=== PATIENT | female | born 1945 | race Caucasian/White ===

== ENCOUNTER 2023-11-10 18:16 | Emergency (ER) | payer MEDICARE ==
[~2023-11-10] VITALS: Ht 160 cm; Wt 60.2 kg
--- NOTE | ~2023-11-10 | EKG ---
[facility] [address] [place], [place] [address] Draft EK completed, results pending confirmation PATIENT NAME: DEB RAINEY Electrocardiogram DATE OF : 41 PHYSICIAN: PRELIMINARY REPORT #: [id number] REPORT IS CONFIDENTIAL AND NOT TO BE RELEASED WITHOUT AUTHORIZATION
[~2023-11-10 18:16] MED LIST: ALPHAGAN P5 M1 OS; ASPIRIN EC325 MG PO; CARDURA1 MG PO; CARDURA2 MG PO; CEPHALEXIN500 MG PO; CIPROFLOXACIN500 MG PO; DILAUDID4 MG PO; DILTIAZEM ER180 MG PO; ECOTRIN81 MG PO; FLAGYL500 MG PO; FLUOXETINE HCL20 MG PO; FORTAMET500 MG PO; LISINOPRIL10 MG PO; LISINOPRIL2.5 MG PO; LISINOPRIL5 MG PO; LUMIGAN2.5 M1 OS; METFORMIN HCL500 MG PO; METHOCARBAMOL500 MG PO; MOBIC15 MG PO; MOTRIN IB200 MG PO; OXYCODONE HCL5 MG PO; OXYCODONE-ACET1 EAC1 PO; PRILOSEC20 MG PO; PROVENTIL HFA6.7 GM INH; PYRIDIUM100 MG PO; SIMVASTATIN20 MG PO; SYMBICORT 80-10.2 GM IH; SYMBICORT 80-10.2 GM INH; TRAMADOL HCL50 MG PO; TRAZODONE HCL100 MG PO; TRAZODONE HCL50 MG PO; ULTRAM50 MG PO; WELLBUTRIN SR100 MG PO; XARELTO10 MG PO; ZOCOR40 MG PO
--- OUTSIDE RECORDS SUMMARY | 2023-11-10 18:22 | XMS ---
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 - 2 Visits in 30 Days CARE PROVIDERS There are no care providers on record at this time. Antoni has no Care Guidelines for this patient. [facility] (12 MO.) [facility] NOTE: Visits indicate total known visits. ED/C VISIT TRACKING (12 MO.) [facility]10[facility]2023 18[facility]17 [facility] [place] [facility]: Emergency COMPLAINT: - KIDNEY PAIN 10/28/2023 17:53 [facility] [place] TYPE: Emergency COMPLAINT: - LOWER ABD PAIN DIAGNOSES: - Allergy status to analgesic agent - Allergy status to narcotic agent - Allergy status to other drugs, medicaments and biological substances - Essential (primary) hypertension - roasterman (current) use of aspirin - roasterman (current) use of oral hypoglycemic drugs - Lower abdominal pain, unspecified - Old myocardial infarction - Other terminal manager (current) drug therapy - Personal history of nicotine dependence - Type 2 diabetes mellitus without complications - Urinary tract infection, site not specified INPATIENT VISIT TRACKING (12 MO.) No inpatient visits to display in this time frame [id number]
[2023-11-10] MEDS ORDERED: SODIUM CHLORIDE 0.9% 1,000 ML IV PRN (18:45)
[2023-11-10 19:02] LABS: BASOPHILS 0.6 % (0-2); MCH 24.4 (27-36)
[2023-11-10 19:04] LABS: HEMATOCRIT 38.2 % (35.0-50.0); LYMPHOCYTES 13.8 % (24-44); MCHC 31.4 g/dl (30-36); MCV 77.6 fl (81-99); MONOCYTES 10.8 % (0-12); NEUTROPHILS 72.8 % (39-80); PLATELET COUNT 308 K/uL (140-440); RBC 4.92 M/ul (4.3-5.7); RDW 16.8 (10.5-15.0)
[2023-11-10 19:30] LABS: ALBUMIN 2.2 g/dL (3.4-5.0); ALBUMIN/GLOBULIN RATIO 0.61 (1.1-2.4); ANION GAP 11.7 (7-21); BILIRUBIN, TOTAL 0.4 ng/dL (0.2-1.0); BUN/CREATININE RATIO 17.14 (6.0-28.6); CALCIUM 8.2 mg/dL (8.5-10.1); CREATININE, SERUM 1.05 mg/dL (0.55-1.02); MAGNESIUM 1.7 mg/dL (1.8-2.4); POTASSIUM 2.7 mmol/L (3.5-5.1); PROTEIN, TOTAL 5.8 g/dL (6.4-8.2)
[2023-11-10] MEDS ORDERED: POTASSIUM CHLORIDE 10 MEQ TABCR PO ONE (20:00)
[2023-11-10] MEDS ORDERED: MAGNESIUM OXIDE 400 MG TABLET PO ONE (20:00)
[2023-11-10] MEDS ORDERED: ALBUTEROL SULFATE 0.083% 3 ML VIAL INH ONE (20:45)
[2023-11-10 21:11] LABS: BILIRUBIN, URINE NEGATIVE (negative); BLOOD/HGB, URINE TRACE-I (Negative); KETONE, URINE TRACE (Negative); LEUK ESTERASE, URINE MODERATE (negative); NITRITE, URINE NEGATIVE (negative)
[2023-11-10 21:16] LABS: EPITHELIAL CELLS, URINE SQUAMOUS 4+ /lpf (0-1+)
[2023-11-10 21:17] LABS: BACTERIA, URINE RARE /hpf (negative); CASTS, URINE NONE SEEN \\lpf; CRYSTALS, URINE NONE SEEN (0-1+); REFLEX CULTURE, URINE No (No); WHITE BLOOD CELLS, URINE >50 /HPF (0-5)
[2023-11-10] MEDS ORDERED: CHOLESTYRAMINE P4 GM PO (21:26)
[2023-11-10] MEDS ORDERED: VANCOCIN HCL125 MG PO (21:26)
[2023-11-10] MEDS ORDERED: VANCOMYCIN HCL 125 MG CAP PO ONE (21:30)
[2023-11-10 21:41] VITALS: BP 169/73
== END 2023-11-10 21:42 | disposition home or self-care (01) ==
LOC: ED 18:16
PROVIDERS: Emergency Medicine
DX: R19.7 Diarrhea, unspecified (principal); R10.9 Unspecified abdominal pain; E86.0 Dehydration; E11.9 Type 2 diabetes mellitus without complications; I10 Essential (primary) hypertension; I25.2 Old myocardial infarction; Z87.891 Personal history of nicotine dependence; Z79.84 Long term (current) use of oral hypoglycemic drugs; Z79.899 Other long term (current) drug therapy; Z88.5 Allergy status to narcotic agent; Z88.8 Allergy status to other drugs, medicaments and biological substances
CPT/HCPCS: 80053; 81001; 83735; 84484; 85025; 85060; 87493; 93005; 93010; 94640; A9270; J7030

== ENCOUNTER 2023-11-29 14:19 | Inpatient (IN) | payer MEDICARE ==
[~2023-11-29] VITALS: Ht 160 cm; Wt 55.2 kg
[~2023-11-29 14:19] MED LIST changes: +CHOLESTYRAMINE P4 GM PO; -DILTIAZEM ER180 MG PO; +DILTIAZEM ER240 MG PO; +VANCOCIN HCL125 MG PO
--- OUTSIDE RECORDS SUMMARY | 2023-11-29 14:25 | XMS ---
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 Antoni has no Care Guidelines for this patient. William VISIT COUNT (12 MO.) 3 [facility]. TOTAL 3 NOTE: Visits indicate total known visits. ED/C VISIT TRACKING (12 MO.) 11/29/2023 14:[address] [facility] [address] [facility] [place] TYPE: Emergency COMPLAINT: - FALL 11/10/2023 18:17 [facility] [place] TYPE: Emergency COMPLAINT: - KIDNEY PAIN DIAGNOSES: - Allergy status to narcotic agent - Allergy status to other drugs, medicaments and biological substances - Dehydration - Diarrhea, unspecified - Essential (primary) hypertension - terminal clerk (current) use of oral hypoglycemic drugs - Old myocardial infarction - Other ad terminal makeup operator (current) drug therapy - Personal history of nicotine dependence - Type 2 diabetes mellitus without complications - Unspecified abdominal pain 10/28/2023 17:53 [facility] [place] TYPE: Emergency COMPLAINT: - LOWER ABD PAIN DIAGNOSES: - Allergy status to analgesic agent - Allergy status to narcotic agent - Allergy status to other drugs, medicaments and biological substances - Essential (primary) hypertension - intermediate (current) use of aspirin - terminal clerk (current) use of oral hypoglycemic drugs - Lower abdominal pain, unspecified - Old myocardial infarction - Other ad terminal makeup operator (current) drug therapy - Personal history of nicotine dependence - Type 2 diabetes mellitus without complications - Urinary tract infection, site not specified INPATIENT VISIT TRACKING (12 MO.) No inpatient visits to display in this time frame [id number]
[2023-11-29] MEDS ORDERED: ALBUTEROL/IPRATROPIUM 3 ML NEB ONE (14:29)
[2023-11-29 14:43] LABS: EOSINOPHILS 0.9 % (0-6); HEMATOCRIT 35.2 % (35.0-50.0); HEMOGLOBIN 10.9 g/dL (12.0-18.0); LYMPHOCYTES 22.5 % (24-44); MCH 24.2 (27-36); MCHC 30.9 g/dl (30-36); MCV 78.2 fl (81-99); MONOCYTES 7.9 % (0-12); NEUTROPHILS 67.7 % (39-80); PLATELET COUNT 316 K/uL (140-440)
[2023-11-29 14:53] LABS: ALBUMIN 2.6 g/dL (3.4-5.0); ALBUMIN/GLOBULIN RATIO 0.65 (1.1-2.4); ALCOHOL, MEDICAL <3 ng/dL (<3); ALKALINE PHOSPHATASE 230 U/L (46-116); ALT (SGPT) 20 U/L (14-59); ANION GAP 12.1 (7-21); AST (SGOT) 29 U/L (15-37); BILIRUBIN, TOTAL 0.5 ng/dL (0.2-1.0); BUN/CREATININE RATIO 14.72 (6.0-28.6); CALCIUM 8.6 mg/dL (8.5-10.1); CARBON DIOXIDE 26 mmol/L (21-32); CHLORIDE 101 mmol/L (98-107); CREATININE, SERUM 1.29 mg/dL (0.55-1.02); GLOMERULAR FILTRATION RATE,EST 42 mL/min (>60); POTASSIUM 4.1 mmol/L (3.5-5.1); PROTEIN, TOTAL 6.6 g/dL (6.4-8.2); UREA NITROGEN 19 mg/dL (7-18)
[2023-11-29 15:19] LABS: BILIRUBIN, URINE NEGATIVE (negative); BLOOD/HGB, URINE NEGATIVE (Negative); KETONE, URINE NEGATIVE (Negative); LEUK ESTERASE, URINE SMALL (negative); NITRITE, URINE POSITIVE (negative)
[2023-11-29 15:25] LABS: RED BLOOD CELLS, URINE 0-1 /hpf (0-5); WHITE BLOOD CELLS, URINE 21-40 /HPF (0-5)
[2023-11-29 15:26] LABS: BACTERIA, URINE 3+ /hpf (negative); CASTS, URINE NONE SEEN \\lpf; COLLECTION TYPE, URINE CLEAN CATCH; CRYSTALS, URINE NONE SEEN (0-1+); EPITHELIAL CELLS, URINE NONE SEEN /lpf (0-1+); REFLEX CULTURE, URINE Yes (No)
[2023-11-29] MEDS ORDERED: ALBUTEROL/IPRATROPIUM 3 ML NEB INH ONE (15:30)
[2023-11-29 15:41] LABS: AMPHETAMINES, URINE NEGATIVE (NEGATIVE); BARBITURATES, URINE NEGATIVE (NEGATIVE); BENZODIAZEPINE, URINE NEGATIVE (NEGATIVE); BUPRENORPHINE, URINE NEGATIVE (NEGATIVE); CANNABINOID, URINE NEGATIVE (NEGATIVE); COCAINE, URINE NEGATIVE (NEGATIVE); ECSTASY, URINE NEGATIVE (NEGATIVE); FENTANYL, URINE NEGATIVE (NEGATIVE); METHADONE, URINE NEGATIVE (NEGATIVE); OPIATES, URINE NEGATIVE (NEGATIVE); OXYCODONE, URINE NEGATIVE (NEGATIVE); PHENCYCLIDINE, URINE NEGATIVE (NEGATIVE)
[2023-11-29] MEDS ORDERED: methylPREDNISolone SOD SUCC 125 MG/2 ML VIAL IV ONE (16:15)
[2023-11-29] MEDS ORDERED: CLOPIDOGREL75 MG (17:34)
[2023-11-29] MEDS ORDERED: ROCKLATAN 0.022.5 ML OP (17:34)
[2023-11-29] MEDS ORDERED: SIMBRINZA 1%-0.28 M1 OP (17:35)
[2023-11-29] MEDS ORDERED: METFORMIN HCL500 M1 PO (17:36)
[2023-11-29] MEDS ORDERED: AZITHROMYCIN/DEXTROSE 500 MG/250 ML BAG IV ONE (17:45)
[2023-11-29] MEDS ORDERED: AMP/SULBACTAM SOD 3 GM in SODIUM CHLORIDE 0.9% 100 ML IV ONE (17:45)
[2023-11-29] MEDS ORDERED: ACETAMINOPHEN 500 MG TAB PO PRN (18:30)
[2023-11-29] MEDS ORDERED: PROCHLORPERAZINE EDISYLATE 10 MG/2 ML VIAL IV PRN (18:30)
[2023-11-29] MEDS ORDERED: IBLOOD GLUCOSE TEST STRIP 1 EA TEST XX PRN (18:30)
[2023-11-29] MEDS ORDERED: DEXTROSE 5% 1,000 ML IV PRN (18:30)
[2023-11-29] MEDS ORDERED: GLUCAGON,HUMAN RECOMBINANT 1 MG/ML VIAL SUB-Q PRN (18:30)
[2023-11-29] MEDS ORDERED: MAGNESIUM HYDROXIDE 30 ML UDC PO PRN (18:30)
[2023-11-29] MEDS ORDERED: DEXTROSE 50% 50 ML SYR IV PRN ×2 (18:30)
[2023-11-29] MEDS ORDERED: FUROSEMIDE 40 MG/4 ML VIAL IV SCH (18:30)
[2023-11-29] MEDS ORDERED: dilTIAZem HCL 240 MG CAPCR PO SCH (18:45)
[2023-11-29] MEDS ORDERED: MAGNESIUM SULFATE 2 GM/50 ML BAG IV PRN (18:45)
[2023-11-29] MEDS ORDERED: ALBUTEROL SULFATE 0.083% 3 ML VIAL INH PRN (18:45)
[2023-11-29] MEDS ORDERED: BENZONATATE 100 MG CAP PO PRN (18:45)
[2023-11-29 19:00] VITALS: BP 186/96
--- NOTE | 2023-11-29 19:05 | NUR ---
PT TRANSPORTED TO ROOM 121 FROM ED BY MS RN - PT ALERT AN ORIENTED. VS OBTAINED AND CHARTED. REPORT TO NIGHT RN. CALL LIGHT IN REACH.
--- NOTE | 2023-11-29 19:16 | NUR ---
med rec complete.
--- NOTE | 2023-11-29 19:26 | NUR ---
SHIFT REPORT RECEIVED FROM MAITE MATHEW, PT AWAKE AND ALERT, EATTING A SANDWICH WITHOUT REQUESTS.
[2023-11-29] MEDS ORDERED: LIDOCAINE HCL 4% 1 EACH PATCH TD SCH (19:27)
--- NOTE | 2023-11-29 19:50 | NUR ---
TC RECEIVED FROM DR LOWERY, PLAN OF CARE DISCUSSED, REQUESTS THAT EARILIER A/B THAT WERE ORDERED SHOULD BE HELD UNTIL LABS RESULTS RETURNED, REQUESTS D DIMER RESULT BE CALLED TO HER.
[2023-11-29] MEDS ORDERED: BUDESONIDE 0.5 MG/2 ML VIAL INH SCH (20:00)
[2023-11-29] MEDS ORDERED: IPRATROPIUM BROMIDE 2.5 ML VIAL INH SCH (20:00)
[2023-11-29 20:45] LABS: INR 1.13 (0.80-1.30); PROTIME 14.1 Sec (11.2-14.2)
[2023-11-29 20:47] LABS: PARTIAL THROMBOPLASTIN TIME 28.2 Sec (22.9-41.3)
[2023-11-29] MEDS ORDERED: MELATONIN 3 MG TAB PO PRN (21:00)
[2023-11-29] MEDS ORDERED: busPIRone HCL 5 MG TAB PO SCH (21:00)
[2023-11-29] MEDS ORDERED: NON-FORMULARY MEDICATION ORDER PO SCH (21:00)
[2023-11-29 21:46] VITALS: BP 144/78
[2023-11-29 21:48] LABS: INFLUENZA B NAA NEGATIVE (NEGATIVE); RESPIRATORY SYNCYTIAL VIR NAA NEGATIVE (NEGATIVE)
--- NOTE | 2023-11-29 22:20 | NUR ---
TC TO DR LOWERY TO REPORT D DIMER OF 13.88, ORDERS RECEIVED FOR STAT CT OF CHEST TO DETERMINE IF PE PRESENT, MD STATES IF POSITVE CT FOR PE TO HOLD ANTIBODICS AND TO START HEPARIN DRIP PER ORDER SET.
--- NOTE | 2023-11-29 22:20 | NUR ---
Assisted RN with rolling Pt to place lidocaine patch and assisted in placing puerwick for Pt. No other needs expressed by Pt. Call light left in reach.
--- NOTE | 2023-11-29 22:40 | NUR ---
ORDER CONFIRMED WITH RADIOLOGY, CONFIRMED PATENT IV SITE AND MODE OF TRANSPORT, PT UPDATED ON NEED FOR CT TO R/O PE, PT UNDERSTANDING AND AGREES TO TREATMENT.
--- NOTE | 2023-11-29 22:50 | NUR ---
PT TRANSPORTED TO CT VIA W/C WITH HOME MORTGAGE DISCLOSURE ACT SPECIALIST, PT ON PORTABLE OXYGEN AT 4L/NC, SL FLUSHES WELL PRIOR TO TRANSPORT TO CT, PT ALERT, TELE IN PLACE.
--- NOTE | 2023-11-29 23:15 | NUR ---
PT RETURNED TO ROOM 121, PT UP TO BSC WITH ASSIST OF CAMELIA CABA WHO REPORTS URINE WAS LARISA AND CONCENTRATED STRONG SMELLING URINE, PT BACK TO BED, PURE WICK REPLACED, PT REPOSITIONED UP IN BED, ASSESSMENT COMPLETED, AWAITING FINAL IMAGING REPORT TO DETERMINE IF HEPARIN DRIP NEEDS TO BE STARTED.
[2023-11-29 23:32] VITALS: BP 148/80
--- NOTE | 2023-11-29 23:33 | NUR ---
Assisted patient to bedside commode and then to bed. Took a set of vitals, put purewick in place, and gown was changed out to a smaller one. Patient is in bed, watching t.v. and call light is within reach, nothing else needed at this time.
--- NOTE | 2023-11-30 00:04 | NUR ---
TC FROM [facility] TO REPORT RESULTS OF CT ARE NOW AVAILABLE AND SHOW AND ACUTE PE, PLAN TO START HEPARIN DRIP PER EARILER ORDER PER DR LOWERY
[2023-11-30] MEDS ORDERED: HEPARIN SOD IV SCH (00:15)
[2023-11-30] MEDS ORDERED: NACL 0.45% IV SCH (00:15)
--- NOTE | 2023-11-30 00:15 | NUR ---
PT WITH PERIODIC DRY COUGH, REQUESTING INHALER, RT CALLED AND REQUEST AN ASSESSMENT AND POSSIBLE NEB TX, RT TO ROOM, NEB GIVEN AND OXYGEN FLOW INCREASED TO 4L/NC DUE TO PRESENCE OF PE AND SATS 88-92%.
[2023-11-30] MEDS ORDERED: HEParin SOD (PORCINE) 5,000 UNIT/ML SYR IV ONE (00:30)
[2023-11-30] MEDS ORDERED: HEPARIN SOD,PORK IN 0.45% NACL 500 ML IV SCH (00:30)
[2023-11-30] MEDS ORDERED: HEParin SOD (PORCINE) 5,000 UNIT/ML SYR IV PRN ×4 (00:30→01:00)
--- NOTE | 2023-11-30 00:30 | NUR ---
Patient wanted to get up to use commode and decided she does not want to have purewick in place and would rather get up to use the bedside commode. Urine is smelling and dark chandana color. Passed on to her nurse that purewick was removed. Patient is back in bed and call light is within reach.
--- NOTE | 2023-11-30 00:32 | NUR ---
LABS DRAWN PER ORDERS.
--- NOTE | 2023-11-30 00:35 | NUR ---
HEPARIN DRIP ORDERS ENTERED AND AWAITING VERIFICATION, LAB IN TO PT'S ROOM TO DRAW LABS.
--- NOTE | 2023-11-30 00:42 | NUR ---
call made to telepharmacy to verify heparin drip order set (placed by primary rn). awaiting verification from telepharmacy.
[2023-11-30 00:46] LABS: BASOPHILS 0.3 % (0-2); HEMATOCRIT 35.2 % (35.0-50.0); HEMOGLOBIN 10.9 g/dL (12.0-18.0); LYMPHOCYTES 5.7 % (24-44); MCH 24.4 (27-36); MCV 78.7 fl (81-99); MONOCYTES 1.1 % (0-12); NEUTROPHILS 92.9 % (39-80); PLATELET COUNT 303 K/uL (140-440); RBC 4.48 M/ul (4.3-5.7); RDW 18.6 (10.5-15.0)
[2023-11-30 01:09] LABS: INR 1.13 (0.80-1.30); PROTIME 14.1 Sec (11.2-14.2)
[2023-11-30 01:11] LABS: PARTIAL THROMBOPLASTIN TIME 27.8 Sec (22.9-41.3)
--- NOTE | 2023-11-30 01:34 | NUR ---
PT AWAKE AND ALERT, 4500 UNITS HEPARIN BOLUS GIVEN PER PROTOCAL, THEN HEPARIN DRIP STARTED 18 UNITS/KG/HR, IV SITE PATENT LEFT AC, PT ASSISTED UP TO BSC, VOIDED, YELLOW STRONG SMELLING URINE, PT BACK TO BED, ATTEMPTING TO REST.
--- NOTE | 2023-11-30 01:48 | NUR ---
PER HEPARIN PROTOCOL, PTT ORDERED FOR 6 HOURS FROM INFUSION START TIME. PTT ORDERED FOR 0740. PRIMARY RN AWARE.
[2023-11-30 03:25] VITALS: BP 154/86
--- NOTE | 2023-11-30 03:30 | NUR ---
UP TO BSC, 1PA, VOIDED STRONG SMELLING CLEAR YELLOW URINE. BACK TO BED. O2 IN PLACE, PLEASANT AND COOPERATIVE
--- NOTE | 2023-11-30 06:56 | NUR ---
IN ROOM TO FIX TELE LEADS, NO ADDITIONAL NEEDS OR CONCERNS VERBLAIZED. CALL LIGHT IN REACH.
--- NOTE | 2023-11-30 07:04 | NUR ---
IMAGING DEPT CALLED, COMING TO pt ROOM FOR ORDERED ECHO.
--- NOTE | 2023-11-30 07:20 | NUR ---
Pt report received from RN Opal Comer. Pt is having an echocardiogram done at this time. Pt is awake, watching the echo screen. White board updated. Call light in reach. Received request from supervisor in charge to call lab when Echo is complete.
--- NOTE | 2023-11-30 07:30 | NUR ---
TC TO DR LOWERY TO UPDATE ON RESULTS OF POSITIVE CT FOR ACUTE PE AND START OF HEPARIN INFUSION, CLARIFICATION REQUESTED FOR PLAVIX TO BE MD FAN STATES TO HOLD PLAVIX FOR NOW WHILE PT IS ON THE HEPARIN DRIP, DAY SHIFT RN UPDATED.
--- NOTE | 2023-11-30 08:20 | NUR ---
Echo finished with pt. This RN in with pt in response to call light to use the BSC. Pt up to BSC, weak, but SBA with line and tube management. No increased SOB, no dizziness, no increased pain. Pt SPO2 at 88% while up to BSC (desats with limited exertion). Pt voided 75ml urine (strong smelling). States she was up every 45 minutes last night to pee and she is very tired. Pt was able to speak to her this morning (she had been worried as she had not been able to get in touch with him). Skin assessment WNL (lidocaine patch to right buttock, dry skin patches, small bruise to mid upper right back), pt back to bed, clean gown provided. Heparin drip set to 18units/kg, IV site intact. RT Eriberto in with pt, ammunition assembly ii laborer in with pt, breakfast tray arrived. Call light in reach.
[2023-11-30 08:28] LABS: BASOPHILS 0.3 % (0-2); HEMATOCRIT 35.3 % (35.0-50.0); HEMOGLOBIN 10.9 g/dL (12.0-18.0); LYMPHOCYTES 6.6 % (24-44); MCV 77.4 fl (81-99); MONOCYTES 7.4 % (0-12); NEUTROPHILS 85.7 % (39-80); PLATELET COUNT 316 K/uL (140-440); RBC 4.56 M/ul (4.3-5.7); RDW 17.8 (10.5-15.0)
[2023-11-30 08:37] LABS: ANION GAP 12.2 (7-21); BUN/CREATININE RATIO 16.89 (6.0-28.6); CALCIUM 8.7 mg/dL (8.5-10.1); CREATININE, SERUM 1.48 mg/dL (0.55-1.02); POTASSIUM 3.2 mmol/L (3.5-5.1)
[2023-11-30] MEDS ORDERED: CLOPIDOGREL BISULFATE 75 MG TAB PO SCH (09:00)
--- NOTE | 2023-11-30 09:30 | NUR ---
NOTED IV IN LAC IS LEAKING AND BLEEDING. INFUSION STOPPED. IV D/C, TIP INTACT, GAUZE AND COBAN DRESSING APPLIED TO SITE. PT TOLERATED WELL. NEW IV STARTED IN RFA X1 ATTEMPT, 22 G, PT TOLERATED WELL. IV FLUSHES EASILY, NO SWELLING OR LEAKING NOTED. INFUSION RESUMED IN RFA IV.
[2023-11-30 10:10] VITALS: BP 151/59
[2023-11-30 10:15] VITALS: BP 151/59
[2023-11-30] MEDS ORDERED: PHARMACY RENAL DOSE ADJUSTMENT 1 DOSE MISC PO SCH (12:00)
[2023-11-30] MEDS ORDERED: ADVAIR 250-501 EACH INH (12:17)
[2023-11-30] MEDS ORDERED: SIMBRINZA 1%-0.28 M1 OU (12:18)
[2023-11-30] MEDS ORDERED: ROCKLATAN 0.022.5 ML OP (12:21)
[2023-11-30] MEDS ORDERED: MAGNESIUM REPLACEMENT PROTOCOL ORAL/IV PO SCH (12:53)
[2023-11-30] MEDS ORDERED: POTASSIUM REPLACEMENT PROTOCOL ORAL/IV PO SCH (12:53)
[2023-11-30] MEDS ORDERED: levalbuterol HCL 1.25 MG/0.5 ML VIAL INH PRN (13:00)
[2023-11-30] MEDS ORDERED: POTASSIUM CHLORIDE 10 MEQ TABCR PO ONE (13:15)
[2023-11-30 14:43] VITALS: BP 148/77
[2023-11-30] MEDS ORDERED: BRINZOLAMIDE OU SCH (15:00)
[2023-11-30] MEDS ORDERED: BRIMONIDINE TART OU SCH (15:00)
[2023-11-30] MEDS ORDERED: ADVIL200 MG PO (16:36)
[2023-11-30] MEDS ORDERED: DILTIAZEM ER240 M1 PO (16:36)
[2023-11-30] MEDS ORDERED: VENTOLIN HFA18 GM INH (16:37)
--- NOTE | 2023-11-30 16:39 | NUR ---
MED REC COMPLETE
[2023-11-30 17:16] VITALS: BP 97/54
--- NOTE | 2023-11-30 17:46 | NUR ---
Dr. Zepeda in with pt. Verbal order received to d/c heparin drip and the order for APTT labs and to order Eliquis 5mg BID x7d then 5mg qd and a CBC and BMP for the morning.
--- NOTE | 2023-11-30 18:54 | NUR ---
Pt's BP earlier today and this afternoon was 151 systolic and 148 systolic. Around 1700 hours this evening, the BP was 97 systolic after the pt woke up from her nap. Assessed BP again after 1800 hours and it was still in the 90s systolic. The pt states she just feels "tired". She states that her BP usually is just over 100 systolic and she isn't always compliant with her meds at home. Attempted to call Dr. Zepeda once but he did not answer. Will attempt again and will pass info on to fast food shift lead.
--- NOTE | 2023-11-30 19:22 | NUR ---
SHIFT REPORT RECEIVED FROM EARL MATHEW.
--- NOTE | 2023-11-30 19:30 | NUR ---
PC to Dr. Zepeda to confirm orders and advise him of this patient's low BP readings since 1700 hours. Telephone order received to D/C diltiazem. Confirmed to go ahead and give the 5mg eliquis starting tonight at 2100 hours.
--- NOTE | 2023-11-30 19:30 | NUR ---
PT RESTING IN BED, TALKING ON PHONE AT THIS TIME.
--- NOTE | 2023-11-30 20:30 | NUR ---
PT VISITING WITH STAFF MEMBER, WITHOUT REQUESTS AT THIS TIME.
[2023-11-30] MEDS ORDERED: APIXABAN 5 MG TAB PO SCH (21:00)
[2023-11-30] MEDS ORDERED: NETARSUDIL MESYLAT/LATANOPROST 2.5 ML DROPS OP SCH (21:00)
[2023-11-30 21:39] VITALS: BP 117/76
--- NOTE | 2023-11-30 21:39 | NUR ---
VS COMPLETED PER NEHEMIAS CABA, BP CURRENTLY 117/76, PT ASSISTED UP TO BSC, REPORTED NO DIZZINESS WITH TRANSFER BUT UPON RETURNING TO BED PT STATES SHE IS VERY WEAK.
--- NOTE | 2023-11-30 21:54 | NUR ---
PT RESTING IN BED, REMAINS AWAKE, ASSESSMENT COMPLETED AND RT HS MEDS GIVEN PER ORDER, PT C/O 09/18 RIGHT BUTTOCK DISCOMFORT, MEDICATED WITH TYLENOL PER ORDER, OXYGEN REMAINS ON AT 3L/NC, PT STATES SHE FEELS TIRES DUE TO LOTS OF ACTIVITY TODAY, SL FLUSHES WELL IN RIGHT WRIST, SIDE RAILS UP X 2, BED LOW POSITION.
[2023-12-01] VITALS (7 sets, daily range): BP systolic 117–178; BP diastolic 62–89
--- NOTE | 2023-12-01 00:06 | NUR ---
PT APPEARS TO SLEEP, RESP EVEN AND REG, OXYGEN REMAINS ON AT 3L/NC, CPOX AT 92%, HR 73 AND NSR.
--- NOTE | 2023-12-01 02:00 | NUR ---
PT ASLEEP, RESP EVEN AND REG, CPOX AT 92%, TELE HR 75, WITHOUT DISTRESS.
--- NOTE | 2023-12-01 03:35 | NUR ---
PT CONTINUES TO SLEEP, RESP EVEN AND REG, OXYGEN CONTS AT 3L/NC, CPOX AT 92%, TELE HR 77.
--- NOTE | 2023-12-01 04:45 | NUR ---
PT CALLED TO USE BATHROOM. SBA BSC, SL SOB ON EXERTION. INDEPENDENTLY AFTER TOILETING; BACK TO BED, REQUESTED A BREATHING TREATMENT; RT IN ROOM. DAILY WEIGHT RECORDED WELL. FRESH ICE IN CUP, PER PT CHOICE. CALL LIGHT WITHIN REACH.
[2023-12-01 05:14] LABS: BASOPHILS 0.6 % (0-2); EOSINOPHILS 0.3 % (0-6); HEMATOCRIT 31.8 % (35.0-50.0); HEMOGLOBIN 10.1 g/dL (12.0-18.0); LYMPHOCYTES 14.4 % (24-44); MCH 24.6 (27-36); MCHC 31.6 g/dl (30-36); MCV 77.7 fl (81-99); MONOCYTES 7.1 % (0-12); NEUTROPHILS 77.6 % (39-80); PLATELET COUNT 275 K/uL (140-440); RDW 17.6 (10.5-15.0)
[2023-12-01 05:23] LABS: BUN/CREATININE RATIO 25.78 (6.0-28.6); CALCIUM 8.6 mg/dL (8.5-10.1); CREATININE, SERUM 1.59 mg/dL (0.55-1.02)
--- NOTE | 2023-12-01 05:27 | NUR ---
PT RESTING IN BED, READING, WITHOUT REQUESTS.
--- NOTE | 2023-12-01 07:13 | NUR ---
Pt report received from PRIYANKA Comer. Pt is asleep, supine, in bed. Breathing is regular, even, and non-labored. Call light in reach. Side rails up. White board updated.
--- NOTE | 2023-12-01 09:40 | NUR ---
Spoke with Christie and her spouse Alan. Pt lives with spouse in home with 1 step. 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 Family grocery shops, son and DIL assist as needed, Yard work is hired. Pt denies financial concerns. Pt plans on dc to home when cleared medically. Pt using 02 at this time and if it is needed on dc would like to use [employer].
--- NOTE | 2023-12-01 11:28 | EKG ---
[facility] [address] [place] [address] Signed Sinus tachycardia with premature atrial complexes Left ventricular hypertrophy with repolarization abnormality ( Sokofabio-UqinonesLisette fry ) Possible Inferior infarct , age undetermined Abnormal ECG When compared with ECG of 10-NOV-2023 18:54, premature atrial complexes are now present Nonspecific T wave abnormality now evident in Inferior leads Nonspecific T wave abnormality now evident in Anterior leads Confirmed by ULISES CHOI MD ([id number]) on 12/01/2023 11:27:59 AM Electronically Signed By: ULISES CHOI 12/01/23 1128 PATIENT NAME: DEB RAINEY DIRK Electrocardiogram DATE OF : 41 PHYSICIAN: ULISES CHOI REPORT #: [id number] REPORT IS CONFIDENTIAL AND NOT TO BE RELEASED WITHOUT AUTHORIZATION
--- NOTE | 2023-12-01 13:03 | NUR ---
VISITED DURING SPIRITUAL CARE ROUNDS. PT SUPPORTED BY FAMILY IN ROOM; STRONG RELATIONAL, ZHANG RESOURCES IN EVIDENCE. BOOK EDITOR PROVIDED SUPPORTIVE PRESENCE, HOSPITALITY, PRAYER. PT AND FAMILY EXPRESSED GRATITUDE.
--- NOTE | 2023-12-01 13:45 | NUR ---
UR CLINICAL REVIEW: 2 MN FOR VERSALUS-MEETS INPT CRITERIA MEDICARE INPT 11/29/23 @ 1806 ORDER MATCHES REG NO AUTH NEEDED PER MEDICARE GUIDELINES DISCHARGE TO HOME WHEN STABLE
--- NOTE | 2023-12-01 18:16 | NUR ---
In with pt in response to pt call light. Pt needs assistance back to bed from [facility]. Pt voided 100ml pungent smelling, clear urine. 1 person SBA as pt transfers self back in to bed, line and tube mgmnt. Pt sats at 88-91% on 3LPM with exertion and reports she gets short of breath. Side rails up x4, call light, bedside table, and personal belongings in reach.
--- NOTE | 2023-12-01 19:44 | NUR ---
REPORT RECEIVED FROM DAY SHIFT RN. PT LYING IN BED RESTING IN BED WITH EYES CLOSED. RESPIRATIONS EVEN. CALL LIGHT IN REACH.
--- NOTE | 2023-12-01 21:45 | NUR ---
IN TO THE ROOM. PT WAS SITTING AT THE SIDE OF THE BED. PATIENT UP TO USE THE BEDSIDE COMMODE. DID SELF ZACHARIAH CARE AFTER VOIDING 100ML YELLOW URINE. PATIENT GOT BACK TO SITTING AT THE SIDE OF THE BED. PATIENT NOTICED WITH STABLE GAIT DURING GETTING UP FROM THE BEDSIDE COMMODE AND MADE A FEW STEPS TOWARDS THE BED. V/S AND I&O'S COMPLETED. CALL LIGHT IN REACH. ICE CHIPS PROVIDED PER PATIENT.
--- NOTE | 2023-12-01 22:15 | NUR ---
EVENING ASSESSMENT COMPLETE. SCHEDULED MEDS ADMIN PER EMAR. PRN FOR RIGHT BUTTOCK PAIN FROM FALL AT HOME ADMIN PER EMAR. PT DENIES NAUSEA. REPORTS SLIGHT SOB AT REST. O2 2L/NC IN PLACE. SpO2 LOW 90'S. RESPIRATIONS EVEN. TELE #[address] SR[address] HR 80'S. ASSISTED PT TO REPOSITION IN BED. PT DENIES QUESTIONS OR CONCERS. CALL LIGHT IN REACH.
[2023-12-02] VITALS (11 sets, daily range): BP systolic 132–189; BP diastolic 62–95
--- NOTE | 2023-12-02 00:37 | NUR ---
PT RESTING IN BED WITH EYES CLOSED. RESPIRATIONS EVEN. SpO2 92% WITH 2L/NC IN PLACE. HR 80'S.
--- NOTE | 2023-12-02 04:22 | NUR ---
PT RESTING IN BED WITH EYES CLOSED. RESPIRATIONS EVEN. CALL LIGHT IN REACH.
--- NOTE | 2023-12-02 04:28 | NUR ---
PUMP SERVICE SUPERVISOR IN ROOM FOR VS AND DAILY WEIGHT. PT UP TO BSC AND BACK TO BED. REPORTS INCREASED SOB WITH ACTIVITY. CONGESTED NON PRODUCTIVE COUGH NOTED. PT ALSO REPORTS BURNING WITH URINATION. WILL PASS ALONG TO LET MD KNOW. ASSESSMENT COMPLETE. NO FURTHER NEEDS.
[2023-12-02 05:27] LABS: BASOPHILS 0.8 % (0-2); EOSINOPHILS 2.6 % (0-6); HEMATOCRIT 33.1 % (35.0-50.0); HEMOGLOBIN 10.2 g/dL (12.0-18.0); LYMPHOCYTES 20.3 % (24-44); MCHC 30.8 g/dl (30-36); MCV 78.1 fl (81-99); NEUTROPHILS 68.3 % (39-80); PLATELET COUNT 274 K/uL (140-440); RBC 4.24 M/ul (4.3-5.7); RDW 17.6 (10.5-15.0)
[2023-12-02 05:33] LABS: ANION GAP 10.5 (7-21); BUN/CREATININE RATIO 25.36 (6.0-28.6); CALCIUM 8.6 mg/dL (8.5-10.1); CREATININE, SERUM 1.38 mg/dL (0.55-1.02); POTASSIUM 4.5 mmol/L (3.5-5.1)
--- NOTE | 2023-12-02 06:39 | NUR ---
PATIENT IS BACK IN BED FROM USING BEDSIDE COMMODE. NO FURTHER NEEDS OR CARE AT THIS TIME. NOTICED PATIENT SHORT OF BREATH. CPOX SHOWED IN LOW 80'S AND BACK UP TO MID 90'S AFTER A MINUTE LAYING DOWN. PATIENT IS IN 2L VIA NC. CALL LIGHT AND SIDE TABLE WITHIN REACH.
--- NOTE | 2023-12-02 07:26 | NUR ---
PATIENT UP TO COMMODE, PULLED RIGHT FOREARM IV OUT, BLEEDING FROM SITE. PRESSURE DRESSING APPLIED TO SITE, PATIENT CLEANED UP. PATIENT RN NOTIFIED.
--- NOTE | 2023-12-02 08:45 | NUR ---
Patient sitting up eating breakfast, alert and oriented x4. Patient is on 2L oxyge, sp02 88% at this time. Patient reports she is short of breath with activity. Patient reports burning/urgeryncy/frequency with voiding. Tylenol 500mg po admin at this time. Continuous sp02 monitor in place. Personal supplies and call light within reach.
--- NOTE | 2023-12-02 10:23 | NUR ---
VISITED DURING SPIRITUAL CARE ROUNDS. PT IN CONVERSATION WITH CASE MANAGEMENT. DID NOT INTERRUPT. PROVIDED PRAYER.
--- NOTE | 2023-12-02 10:30 | NUR ---
Spoke with Latonya. She states she wants to go home, but feels she cannot. She complains of having significant pain in her lower abd. She wants to speak with . Pt qualifies for 02 and wants to use [place]. wrote RX and will enter note of need. Pt is concerned she has a UTI.
--- NOTE | 2023-12-02 10:36 | NUR ---
ISAURO from Dr. Zepeda to order pyridium 200mg po TID for two days for urinary discomfort. Order placed at this time.
[2023-12-02] MEDS ORDERED: PHENAZOPYRIDINE HCL 95 MG TAB PO SCH (10:45)
--- NOTE | 2023-12-02 13:30 | NUR ---
Notified by Dr. Zepeda he is evaluating pt further. Unclear if pt will dc today.
--- NOTE | 2023-12-02 14:11 | NUR ---
CRM MANAGER WENT INTO DO PATIENTS VITALS AND PATIENT NEEDED TO USE THE COMMODE. CRM MANAGER ASSISTED PATIENT TO COMMODE AND THEN BACK TO BED. CRM MANAGER RECORDED PATIENT VOIDINGS. VITALS AND I&O'S CHARTED. CALL LIGHT WITHIN REACH, NO FURTHER NEEDS AT THIS TIME.
--- NOTE | 2023-12-02 14:17 | NUR ---
PATIENT GIVEN 500MG OF PO TYLENOL FOR ABDOMINAL PAIN 02/18. DR. CHOI IN TO SEE PATIENT, MAYUR TO R/O CONSTIPATION.
[2023-12-02] MEDS ORDERED: bisacodyL 10 MG SUPP PR ONE (15:15)
[2023-12-02] MEDS ORDERED: LIDOCAINE 2% VISCOUS 6 ML SYR TOP ONE (15:15)
[2023-12-02] MEDS ORDERED: bisacodyL 5 MG TABEC PO ONE (15:15)
--- NOTE | 2023-12-02 15:30 | NUR ---
Patient crying and restless in bed. Patient reports sudden increase in bladder pain. Bladder scan done; 1358 per [address] scanner. Updated Dr. Zepeda regarding patient status and KUB results. New orders obtained from Dr. Zepeda to place a sanchez catheter and start dulcolax 5mg po daily. Sanchez placed using sterile technique. Immediate return of orange colored urine-1800ml total out just after sanchez placement. Patient tolerated placement well-Pt report immediate bladder relief.
--- NOTE | 2023-12-02 18:25 | NUR ---
Patient up for bm-assisted back to bed. BP rechecked at this time-157/87, p110. SP02 93% on 2l oxygen.
--- NOTE | 2023-12-02 18:43 | NUR ---
heart rate 106 per tele. Patient resting in bed, no distress, respirations even and non labored.
--- NOTE | 2023-12-02 19:20 | NUR ---
REPORT RECEIVED FROM DAY SHIFT RN. PT LYING IN BED ALERT AND ORIENTED. DENIES NEEDS. WHITE BOARD UPDATED. CALL LIGHT IN REACH.
[2023-12-02] MEDS ORDERED: dilTIAZem HCL 240 MG CAPCR PO SCH (19:25)
--- NOTE | 2023-12-02 19:33 | NUR ---
DEBRA from Dr. Zepeda to restart patient's home med for Diltiazem ER 240mg po daily. Med ordered and verified with tele phamarcy.
[2023-12-02] MEDS ORDERED: IPRATROPIUM BROMIDE 2.5 ML VIAL INH SCH (20:00)
--- NOTE | 2023-12-02 20:09 | NUR ---
PER REQUEST OF PRIMARY RN, THIS RN IN ROOM TO ADMINISTER SCHEDULED BREATHING TX. pt ON PHONE WITH FAMILY, NO DISTRESS NOTED. pt TO CALL VIA CALL LIGHT WHEN OFF PHONE AND READY FOR TX, CALL LIGHT IN REACH.
--- NOTE | 2023-12-02 20:33 | NUR ---
SCHEDULED BREATHING TX COMPLETE, SEE EMAR. pt TOLERATED WELL. VSS AND I&O'S COMPLETED. ROOM TIDED AND FRESH ICE WATER AND ICE FOR SODA PROVIDED. NO FURTHER NEEDS, CALL LIGHT IN REACH. PRIMARY RN UPDATED.
--- NOTE | 2023-12-02 20:54 | NUR ---
EVENING ASSESSMENT COMPLETE. SCHEDULED MEDS ADMIN PER EMAR. PT DENIES PAIN OR NAUSEA. DENIES SOB. 2L/NC IN PLACE. SpO2 MID 90'S. RESPIRATIONS EVEN. PIERCE PATENT WITH QS URINE. ASSISTED PT TO REPOSITION IN BED. PT DENIES QUESTIONS OR CONCERNS. CALL LIGHT IN REACH.
[2023-12-03] VITALS (8 sets, daily range): BP systolic 121–143; BP diastolic 63–87
--- NOTE | 2023-12-03 00:10 | NUR ---
PT RESTING IN BED WITH EYES CLOSED. RESPIRATIONS EVEN. SpO2 92% WITH 2L/NC IN PLACE. HR 90'S. CALL LIGHT IN REACH.
--- NOTE | 2023-12-03 01:56 | NUR ---
PT RESTING WITH EYES CLOSED. AWAKENS EASILY. VS OBTAINED. PT DENIES SOB. 2L/NC IN PLACE. SpO2 92%. HR 90'S. PT DENIES PAIN OR NAUSEA. NO NEEDS AT THIS TIME.
--- NOTE | 2023-12-03 04:45 | NUR ---
coffee-black provided per pt request. primary rn and licensed real estate broker in room completing am cares.
[2023-12-03 05:47] LABS: BASOPHILS 0.6 % (0-2); EOSINOPHILS 9.8 % (0-6); HEMATOCRIT 34.5 % (35.0-50.0); HEMOGLOBIN 10.6 g/dL (12.0-18.0); LYMPHOCYTES 10.5 % (24-44); MCHC 30.6 g/dl (30-36); MCV 78.2 fl (81-99); MONOCYTES 4.8 % (0-12); NEUTROPHILS 74.3 % (39-80); PLATELET COUNT 309 K/uL (140-440); RBC 4.41 M/ul (4.3-5.7); RDW 17.7 (10.5-15.0)
--- NOTE | 2023-12-03 05:51 | NUR ---
PT AWAKE IN BED. REPORTS SHE SLEPT WELL. VS AND I&O OBTAINED. DAILY WEIGHT OBTAINED. PT DENIES FURTHER NEEDS. CALL LIGHT IN REACH.
[2023-12-03 05:59] LABS: ANION GAP 8.1 (7-21); CALCIUM 8.3 mg/dL (8.5-10.1); CREATININE, SERUM 1.12 mg/dL (0.55-1.02); POTASSIUM 4.1 mmol/L (3.5-5.1)
--- NOTE | 2023-12-03 08:26 | NUR ---
SECURITY SYSTEMS SALES REPRESENTATIVE ENTERED ROOM FOR HOURLY ROUNDING. PT WAS SITTING UP ON THE EDGE OF THE BED EATING BREAKFAST. PT REQUESTED SECURITY SYSTEMS SALES REPRESENTATIVE TO OPEN HER MILK. AFTER IT WAS OPEN, PT STATED NO FURTHER COMPLAINTS OR CONCERNS AND HER CALL LIGHT IS WIHTIN REACH
[2023-12-03] MEDS ORDERED: MAGNESIUM CITRATE 300 ML BTL PO ONE (08:30)
[2023-12-03] MEDS ORDERED: SOD PHOSPHATE/SOD BIPHOSPHATE 132 ML BTL PR ONE ×2 (08:30→12:30)
[2023-12-03] MEDS ORDERED: TAMSULOSIN HCL 0.4 MG CAP PO SCH (09:00)
[2023-12-03] MEDS ORDERED: bisacodyL 5 MG TABEC PO SCH (09:00)
--- NOTE | 2023-12-03 10:03 | NUR ---
VISITED DURING SPIRITUAL CARE ROUNDS. PT IN CONVERSATION WITH CASE MANAGEMENT. DID NOT INTERRUPT. PROVIDED PRAYER.
--- NOTE | 2023-12-03 10:40 | NUR ---
Pt states she feels much better today. Taking meds for a bowel movement. Denies bladder pain. Possible dc today if pt has bm and voids. 02 is ready at [place], they need notified if pt dcs and pt can go home with their tank.
--- NOTE | 2023-12-03 12:41 | NUR ---
ISAURO from Dr. Zepeda to remove sanchez catheter and bladder scan patient in two hours if she has not voided. Patient had a large bowel movement, per Dr. Zepeda ok to non admin second fleets enema. Sanchez cath removed, cath tip intact. Patient tolerated removal well. Pt due to void.
[2023-12-03] MEDS ORDERED: WARFARIN SOD 2.5 MG TAB PO ONE (15:15)
[2023-12-03] MEDS ORDERED: WARFARIN SODIU2.5 MG PO (15:24)
[2023-12-03] MEDS ORDERED: BACTRIM DS TAB1 EACH PO (15:53)
[2023-12-03] MEDS ORDERED: WARFARIN SOD 2.5 MG TAB PO SCH (16:00)
[2023-12-03] MEDS ORDERED: WARFARIN PER PHARMACY PROTOCOL PO SCH (16:00)
--- NOTE | 2023-12-03 16:02 | NUR ---
Dr. Zepeda at bedside, he is requesting to be notified when patient voids.
--- NOTE | 2023-12-03 16:10 | NUR ---
IN PULSE OX ALARMING. PT SITTING UP IN BED ON CELL PHONE. CPOX SHOWING PTs O2 SATS AT 87% ON 2L NC. NC INCREASED TO 3L AND O2 SATS INCREASE TO 91%. PT DENIES FEELING SOB. PT CONTINUES TO TALK ON CELL PHONE. NO OTHER NEEDS FROM THIS RN. CALL LIGHT IN REACH.
[2023-12-03] MEDS ORDERED: TRIMETHOPRIM/SULFAMETHOXAZOLE 1 EA TAB PO SCH (17:00)
--- NOTE | 2023-12-03 18:12 | NUR ---
PATIENT IS TAKING BOTH WARFARIN AND ELIQUIS PER PHARMACY
--- NOTE | 2023-12-03 18:38 | NUR ---
Dr. Zepeda updated that patient has not yet voided. No new orders obtained.
--- NOTE | 2023-12-03 18:55 | NUR ---
ROSALES WAS A SBA FOR PT TO GET BACK TO BED FROM BSC. PT WAS WORRIED ABOUT MAKING A MESS AFTER HER ENEMA SO ROSALES PUT A BRIEF ON THE PT. ROSALES BLADDER SCANNED PT AND GOT A RESULT OF 111ML. THIS WAS CHARTED AND THE RN WAS NOTIFIED. PRODUCT MANAGEMENT SPECIALIST ENCOURAGED PT TO DRINK WATER. PT STATES SHE IS COMFORTABLE AND HAS NO FURTHER COMPLAINTS. CALL LIGHT IS WITHIN REACH
--- NOTE | 2023-12-03 19:36 | NUR ---
REPORT RECIEVED FROM DAY SHIFT RN. PATIENT RESTING IN BED ON BACK. PATIENT DENIES NEEDS AT THIS TIME. CALL LIGHT IN REACH.
--- NOTE | 2023-12-03 21:06 | NUR ---
PLANT ENGINEERING MANAGER OBTAINED VITALS AND I&O. PT STATES NO FURTHER NEEDS AT THIS TIME. CALL LIGHT WITHIN REACH.
--- NOTE | 2023-12-03 21:36 | NUR ---
PATIENT RESTING IN BED. SCHEDULED MEDICATIONS ADMINISTERED. PATIENT DENIES SOB. IV FLUSHES WNL. FRESH WATER PROVIDED. BILAT LUNG SOUNDS CLEAR. PATIENT DENIES FURTHER NEEDS AT THIS TIME. PATIENT DENIES THE URGE TO URINATE AT THIS TIME. CALL LIGHT IN REACH.
--- NOTE | 2023-12-03 23:15 | NUR ---
PATIENT UP TO BSC WITH 1 PERSON SBA TO TRY AND URINATE. PATIENT HAD 1 SMALL LIQUID BM, BUT NO URINE. NEW BREIF PLACE. PATIENT BACK TO BED. PATIENT DENIES FURTHER NEEDS AT THIS TIME. CALL LIGHT IN REACH.
[2023-12-04 00:46] VITALS: BP 121/73
[2023-12-04 00:47] VITALS: BP 121/73
--- NOTE | 2023-12-04 01:17 | NUR ---
VS AND I&Os OBTAINED AND RECORDED. BLADDER SCAN READS 437 mL. PATIENT UP TO BSC WITH MINIMAL SBA TO TRY AND URINATE. PATIENT UNABLE TO URINATE. SMALL LIQUID BM NOTED. PATIENT BACK TO BED. PATIENT STATES "I AM STARTING TO FEEL TO URGE TO GO, GIVE ME A LITTLE MORE TIME". PATIENT HAS NO FURTHER NEEDS. CALL LIGHT IN REACH. BED ALARM ON FOR SAFETY.
--- NOTE | 2023-12-04 03:15 | NUR ---
PATIENT RESTING IN BED. BLADDER SCAN OBTAINED. 721 mL URINE IN BLADDER. PATIENT UP TO BSC WITH MINIMAL SBA TO TRY AND URINE. PATIENT VOIDED 50 mL URINE. PATIENT BACK TO BED. BED ALARM ON FOR SAFETY. CALL LIGHT IN REACH.
--- NOTE | 2023-12-04 03:39 | NUR ---
CALL PLACED TO MD REGARDING PATIENT BLADDER SCAN AND URINE OUTPUT. NEW ORDERS RECIEVED. ORDERS VERIFIED USING REPEAT BACK METHOD.
[2023-12-04 04:13] VITALS: BP 152/76
[2023-12-04 04:17] VITALS: BP 152/76
--- NOTE | 2023-12-04 04:21 | NUR ---
PATIENT RESTING IN BED. PIERCE CATHETER PLACED USING STERILE TECHNIQUE. CATHETER BALLOON INFLATED WITH 10 mL. PATIENT HEATHER WELL. 750 mL OF URINE OUTPUT. NEW SNEHA AND BRIEF PLACED. ASSESSMENT COMPLETE. LUNG SOUNDS CLEAR BILAT. VS AND I&Os OBTAINED AND RECORDED. PATIENT HAS NO FURTHER NEEDS. BED ALARM ON FOR SAFETY. CALL LIGHT IN REACH.
[2023-12-04 05:33] LABS: MCV 77.1 fl (81-99)
[2023-12-04 05:35] LABS: EOSINOPHILS 12.1 % (0-6); HEMATOCRIT 32.9 % (35.0-50.0); HEMOGLOBIN 10.3 g/dL (12.0-18.0); LYMPHOCYTES 12.3 % (24-44); MCH 24.1 (27-36); MCHC 31.2 g/dl (30-36); MONOCYTES 6.1 % (0-12); NEUTROPHILS 68.5 % (39-80); PLATELET COUNT 305 K/uL (140-440); RBC 4.27 M/ul (4.3-5.7); RDW 17.5 (10.5-15.0)
[2023-12-04 05:43] LABS: ANION GAP 9.8 (7-21); BUN/CREATININE RATIO 18.6 (6.0-28.6); CALCIUM 8.7 mg/dL (8.5-10.1); CREATININE, SERUM 1.29 mg/dL (0.55-1.02); MAGNESIUM 2.2 mg/dL (1.8-2.4); POTASSIUM 4.8 mmol/L (3.5-5.1)
--- NOTE | 2023-12-04 06:26 | NUR ---
PATIENT RESTING IN BED WITH EYES CLOSED. RESPIRATIONS EVEN AND UNLABORED. CALL LIGHT IN REACH.
--- NOTE | 2023-12-04 07:30 | NUR ---
PT RESTING IN BED AND IS ON THE PHONE. CALL LIGHT WITHIN REACH.
[2023-12-04] MEDS ORDERED: LIDOCAINE 2% VISCOUS 6 ML SYR TOP ONE (07:45)
--- NOTE | 2023-12-04 09:30 | NUR ---
Spoke with Christie. She plans on dc to home today with a sanchez in place. O2 was not set up last night as planned. I spoke with Juan Antonio and they will deliver 02 today.
[2023-12-04] MEDS ORDERED: TAMSULOSIN HCL0.4 MG PO (09:44)
[2023-12-04] MEDS ORDERED: BUSPIRONE HCL5 MG PO (09:45)
[2023-12-04 09:47] VITALS: BP 179/77
--- NOTE | 2023-12-04 10:36 | NUR ---
LEG BAG PLACED PER DR CHOI ORDER FOR HOME USE. PT STATES SHE HAS HAD ONE BEFORE AND KNOWS HOW TO USE, CARE FOR, EMPTY, AND CHECK PIERCE.
[2023-12-04 11:10] VITALS: BP 101/64
--- NOTE | 2023-12-04 11:10 | NUR ---
VISITED DURING SPIRITUAL CARE ROUNDS. PT RECEIVING NURSING CARE. DID NOT INTERRUPT. PROVIDED PRAYER.
[2023-12-04] MEDS ORDERED: WARFARIN SOD 2.5 MG TAB PO SCH (16:00)
== END 2023-12-04 11:31 | disposition home or self-care (01) | DRG 175 ==
LOC: ED 14:19 → MS 18:06
PROVIDERS: Family Medicine; ADMIT Family Medicine; ATTEND Family Medicine
DX: I26.99 Other pulmonary embolism without acute cor pulmonale (principal); J18.9 Pneumonia, unspecified organism; J96.01 Acute respiratory failure with hypoxia; N39.0 Urinary tract infection, site not specified; N17.9 Acute kidney failure, unspecified; Z66 Do not resuscitate; I25.10 Atherosclerotic heart disease of native coronary artery without angina pectoris; E11.9 Type 2 diabetes mellitus without complications; I10 Essential (primary) hypertension; R33.9 Retention of urine, unspecified; R00.0 Tachycardia, unspecified; K59.00 Constipation, unspecified; F41.9 Anxiety disorder, unspecified; Z91.148 Patient's other noncompliance with medication regimen for other reason; Z95.1 Presence of aortocoronary bypass graft; Z87.891 Personal history of nicotine dependence; I25.2 Old myocardial infarction; Z90.49 Acquired absence of other specified parts of digestive tract; Z98.890 Other specified postprocedural states; Z90.710 Acquired absence of both cervix and uterus; Z88.8 Allergy status to other drugs, medicaments and biological substances; Z88.5 Allergy status to narcotic agent; Z79.899 Other long term (current) drug therapy; Z79.2 Long term (current) use of antibiotics; Z79.84 Long term (current) use of oral hypoglycemic drugs; Z91.81 History of falling; Z79.51 Long term (current) use of inhaled steroids
CPT/HCPCS: 36415; 51702; 51798; 70450; 71045; 71260; 72100; 72125; 74018; 80048; 80053; 80307; 81001; 83605; 83735; 83880; 85025; 85379; 85610; 85730; 87040; 87077; 87088; 87186; 87502; 93005; 93010; 93306; 93970; 94640; 94761; 94762; 96374; 97116; 97161; 99285-25; A9270; G0480; J1644; J1940; J2919; U0002

== ENCOUNTER 2023-12-18 20:43 | Emergency (ER) | payer MEDICARE ==
[~2023-12-18] VITALS: Ht 160 cm; Wt 55.3 kg
[~2023-12-18 20:43] MED LIST changes: +ADVAIR 250-501 EACH INH; +ADVIL200 MG PO; +BACTRIM DS TAB1 EACH PO; +BUSPIRONE HCL5 MG PO; +CLOPIDOGREL75 MG; +DILTIAZEM ER240 M1 PO; +METFORMIN HCL500 M1 PO; +ROCKLATAN 0.022.5 ML OP; +SIMBRINZA 1%-0.28 M1 OP; +SIMBRINZA 1%-0.28 M1 OU; +TAMSULOSIN HCL0.4 MG PO; +VENTOLIN HFA18 GM INH; +WARFARIN SODIU2.5 MG PO
--- OUTSIDE RECORDS SUMMARY | 2023-12-18 20:46 | XMS ---
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 Antoni has no Care Guidelines for this patient. William VISIT COUNT (12 MO.) 4 [facility] TOTAL 4 NOTE: Visits indicate total known visits. [place] VISIT TRACKING (12 MO.) 12/18/2023 20:[address] [facility] [place] TYPE: Emergency COMPLAINT: - WEAKNESS 11/29/2023 14:19 [facility] [place] TYPE: Emergency COMPLAINT: - FALL 11/10/2023 18:17 [facility] [place] TYPE: Emergency COMPLAINT: - KIDNEY PAIN DIAGNOSES: - Allergy status to narcotic agent - Allergy status to other drugs, medicaments and biological substances - Dehydration - Diarrhea, unspecified - Essential (primary) hypertension - manager long term care (current) use of oral hypoglycemic drugs - Old myocardial infarction - Other snf (current) drug therapy - Personal history of nicotine dependence - Type 2 diabetes mellitus without complications - Unspecified abdominal pain 10/28/2023 17:53 [facility] [place] TYPE: Emergency COMPLAINT: - LOWER ABD PAIN DIAGNOSES: - Allergy status to analgesic agent - Allergy status to narcotic agent - Allergy status to other drugs, medicaments and biological substances - Essential (primary) hypertension - manager long term care (current) use of aspirin - FDC (current) use of oral hypoglycemic drugs - Lower abdominal pain, unspecified - Old myocardial infarction - Other snf (current) drug therapy - Personal history of nicotine dependence - Type 2 diabetes mellitus without complications - Urinary tract infection, site not specified INPATIENT VISIT TRACKING (12 MO.) 11/29/2023 18:06 [facility] [place] TYPE: Medical Surgical COMPLAINT: - ACUTE HYPOXIC RESPIRATORY FAILURE DIAGNOSES: - Acquired absence of both cervix and uterus - Acquired absence of both cervix and uterus - Acquired absence of other specified parts of digestive tract - Acquired absence of other specified parts of digestive tract - Acute kidney failure, unspecified - Acute kidney failure, unspecified - Acute respiratory failure with hypoxia - Allergy status to narcotic agent - Allergy status to narcotic agent - Allergy status to other drugs, medicaments and biological substances - Allergy status to other drugs, medicaments and biological substances - Anxiety disorder, unspecified - Anxiety disorder, unspecified - Atherosclerotic heart disease of [place] coronary artery without angina pectoris - Atherosclerotic heart disease of [place] coronary artery without angina pectoris - Constipation, unspecified - Constipation, unspecified - Do not resuscitate - Do not resuscitate - Essential (primary) hypertension - Essential (primary) hypertension - History of falling - History of falling - FDC (current) use of antibiotics - manager long term care (current) use of antibiotics - FDC (current) use of inhaled steroids - FDC (current) use of inhaled steroids - manager long term care (current) use of oral hypoglycemic drugs - manager long term care (current) use of oral hypoglycemic drugs - Old myocardial infarction - Old myocardial infarction - Other snf (current) drug therapy - Other 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 (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) drug 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 - Other pulmonary embolism without acute cor pulmonale - Other pulmonary embolism without acute cor pulmonale - Other specified postprocedural states - Other specified postprocedural states - Patient's other noncompliance with medication regimen for other reason - Patient's other noncompliance with medication regimen for other reason - Personal history of nicotine dependence - Personal history of nicotine dependence - Pneumonia, unspecified organism - Pneumonia, unspecified organism - Presence of aortocoronary bypass graft - Presence of aortocoronary bypass graft - Retention of urine, unspecified - Retention of urine, unspecified - Tachycardia, unspecified - Tachycardia, unspecified - Type 2 diabetes mellitus without complications - Type 2 diabetes mellitus without complications - Urinary tract infection, site not specified - Urinary tract infection, site not specified [email or web address]
[2023-12-18] MEDS ORDERED: ALBUTEROL/IPRATROPIUM 3 ML NEB INH ONE (21:00)
[2023-12-18 21:04] LABS: BASOPHILS 0.7 % (0-2); EOSINOPHILS 0.3 % (0-6); HEMATOCRIT 37.7 % (35.0-50.0); HEMOGLOBIN 11.9 g/dL (12.0-18.0); LYMPHOCYTES 11.5 % (24-44); MCH 23.5 (27-36); MCHC 31.5 g/dl (30-36); MCV 74.7 fl (81-99); MONOCYTES 7.2 % (0-12); NEUTROPHILS 80.3 % (39-80); PLATELET COUNT 371 K/uL (140-440); RBC 5.05 M/ul (4.3-5.7); RDW 17.6 (10.5-15.0)
[2023-12-18 21:25] LABS: ALBUMIN/GLOBULIN RATIO 0.65 (1.1-2.4); ANION GAP 12.4 (7-21); BILIRUBIN, TOTAL 0.5 ng/dL (0.2-1.0); BUN/CREATININE RATIO 23.95 (6.0-28.6); CALCIUM 9.5 mg/dL (8.5-10.1); CREATININE, SERUM 0.96 mg/dL (0.55-1.02); POTASSIUM 4.4 mmol/L (3.5-5.1); PROTEIN, TOTAL 7.6 g/dL (6.4-8.2)
[2023-12-18 21:33] LABS: BILIRUBIN, URINE NEGATIVE (negative); BLOOD/HGB, URINE LARGE (Negative); KETONE, URINE TRACE (Negative); LEUK ESTERASE, URINE SMALL (negative); NITRITE, URINE NEGATIVE (negative)
[2023-12-18 21:39] LABS: CRYSTALS, URINE NONE SEEN (0-1+); EPITHELIAL CELLS, URINE SQUAMOUS 1+ /lpf (0-1+); WHITE BLOOD CELLS, URINE >50 /HPF (0-5)
[2023-12-18 21:40] LABS: BACTERIA, URINE 4+ /hpf (negative); CASTS, URINE NONE SEEN \\lpf; COLLECTION TYPE, URINE CLEAN CATCH; REFLEX CULTURE, URINE Yes (No)
[2023-12-18 21:41] LABS: INFLUENZA B NAA NEGATIVE (NEGATIVE); RESPIRATORY SYNCYTIAL VIR NAA NEGATIVE (NEGATIVE)
[2023-12-18] MEDS ORDERED: FUROSEMIDE 40 MG/4 ML VIAL IV ONE (21:45)
[2023-12-18] MEDS ORDERED: LASIX20 MG PO (22:04)
[2023-12-18] MEDS ORDERED: MACROBID 100 M100 MG PO (22:04)
[2023-12-18 22:35] VITALS: BP 173/79
--- NOTE | 2023-12-20 10:42 | EKG ---
[facility] [address] [facility] [place] [address] Signed Sinus tachycardia Minimal voltage criteria for LVH, may be normal variant ( Sokolow-Quinones ) Borderline ECG When compared with ECG of 29-NOV-2023 14:22, premature atrial complexes are no longer present Nonspecific T wave abnormality no longer evident in Inferior leads Nonspecific T wave abnormality, improved in Anterolateral leads Confirmed by Nasreen Cerda MD ([id number]) on 12/20/2023 10:42:34 AM Electronically Signed By: NASREEN CERDA 12/20/23 1042 PATIENT NAME: DEB RAINEY Electrocardiogram DATE OF : 41 PHYSICIAN: NASREEN CERDA REPORT #: [id number] REPORT IS CONFIDENTIAL AND NOT TO BE RELEASED WITHOUT AUTHORIZATION
== END 2023-12-18 22:35 | disposition home or self-care (01) ==
LOC: ED 20:43
PROVIDERS: Family Medicine
DX: N39.0 Urinary tract infection, site not specified (principal); I11.0 Hypertensive heart disease with heart failure; I50.9 Heart failure, unspecified; Z79.01 Long term (current) use of anticoagulants; E11.9 Type 2 diabetes mellitus without complications; I25.2 Old myocardial infarction; Z87.891 Personal history of nicotine dependence; Z95.1 Presence of aortocoronary bypass graft; Z88.5 Allergy status to narcotic agent; Z88.8 Allergy status to other drugs, medicaments and biological substances; Z79.899 Other long term (current) drug therapy; Z11.52 Encounter for screening for COVID-19
CPT/HCPCS: 36415; 71101; 80053; 81001; 83880; 85025; 87502; 93005; 93010; 96374; 99285-25; J1940; U0002

== ENCOUNTER 2024-04-10 18:30 | Emergency (ER) | payer MEDICARE ==
[~2024-04-10] VITALS: Ht 160 cm; Wt 54.9 kg
[~2024-04-10 18:30] MED LIST changes: +CIPRO500 MG PO; +DIFLUCAN100 MG PO; +FLOMAX0.4 MG PO; +LASIX20 MG PO; +MACROBID 100 M100 MG PO
[2024-04-10] MEDS ORDERED: IBLOOD GLUCOSE TEST STRIP 1 EA TEST XX ONE (19:00)
[2024-04-10 19:01] LABS: BASOPHILS 5.1 % (0-2); EOSINOPHILS 2.7 % (0-6); HEMATOCRIT 38.2 % (35.0-50.0); HEMOGLOBIN 11.7 g/dL (12.0-18.0); LYMPHOCYTES 16.1 % (24-44); MCH 23.1 (27-36); MCHC 30.6 g/dl (30-36); MCV 75.5 fl (81-99); MONOCYTES 5.2 % (0-12); NEUTROPHILS 70.9 % (39-80); PLATELET COUNT 238 K/uL (140-440); RBC 5.06 M/ul (4.3-5.7); RDW 19.1 (10.5-15.0)
[2024-04-10 19:14] LABS: ALBUMIN/GLOBULIN RATIO 0.83 (1.1-2.4); ANION GAP 13.9 (7-21); BILIRUBIN, TOTAL 0.5 ng/dL (0.2-1.0); BUN/CREATININE RATIO 24.56 (6.0-28.6); CREATININE, SERUM 1.14 mg/dL (0.55-1.02); POTASSIUM 3.9 mmol/L (3.5-5.1); PROTEIN, TOTAL 6.6 g/dL (6.4-8.2)
[2024-04-10 19:56] LABS: INR 1.02 (0.80-1.30); PROTIME 12.7 Sec (11.2-14.2)
[2024-04-10 23:00] VITALS: BP 156/75
--- NOTE | 2024-04-11 12:18 | EKG ---
[facility] [address] [place] [address] Signed Normal sinus rhythm Moderate voltage criteria for LVH, may be normal variant ( Sokolow-Quinones , Edil product ) Cannot rule out Inferior infarct , age undetermined Abnormal ECG When compared with ECG of 18-DEC-2023 20:52, Vent. rate has decreased BY 43 BPM QT has lengthened Confirmed by Timothy Sandoval MD ([id number]) on 04/11/2024 12:18:29 PM Electronically Signed By: TIMOTHY SANDOVAL DO 04/11/24 1218 PATIENT NAME: DEB RAINEY DIRK Electrocardiogram DATE OF : 41 PHYSICIAN: TIMOTHY SANDOVAL DO REPORT #: [id number] REPORT IS CONFIDENTIAL AND NOT TO BE RELEASED WITHOUT AUTHORIZATION
== END 2024-04-10 23:00 | disposition home or self-care (01) ==
LOC: ED 18:30
PROVIDERS: Emergency Medicine; Internal Medicine
DX: R55 Syncope and collapse (principal); I10 Essential (primary) hypertension; E11.9 Type 2 diabetes mellitus without complications; I25.2 Old myocardial infarction; Z87.891 Personal history of nicotine dependence; Z88.5 Allergy status to narcotic agent; Z88.8 Allergy status to other drugs, medicaments and biological substances; Z79.899 Other long term (current) drug therapy; Z79.01 Long term (current) use of anticoagulants; Z79.84 Long term (current) use of oral hypoglycemic drugs
CPT/HCPCS: 36415; 51798; 70450; 71045; 80053; 83735; 84484; 85025; 85610; 93005; 93010; 99285-25; G0480

== ENCOUNTER 2024-06-15 09:00 | Day surgery (SDC) | payer MEDICARE, OTHER ==
[2024-06-10 10:54] VITALS: BP 118/64
[~2024-06-15] VITALS: Ht 160 cm; Wt 48.2 kg
[~2024-06-15 09:00] MED LIST changes: +CIPROFLOXACIN 0.3% 5 ML HOME.PACK ONE; +IBLOOD GLUCOSE TEST STRIP 1 EA TEST VI PRN; +LACTATED RINGER'S 1,000 ML IV SCH; +LIDOCAINE HCL 1% 5 ML SDV INJ ONE
[2024-06-15 09:16] VITALS: BP 132/66
[2024-06-15] MEDS ORDERED: CRESTOR40 MG PO (09:21)
[2024-06-15] MEDS ORDERED: EYLEA2 MG/0.01 IO (09:21)
[2024-06-15 09:50] LABS: BASOPHILS 1.2 % (0-2); BASOPHILS, ABSOLUTE 0.1 %; EOSINOPHILS 3.1 % (0-6); EOSINOPHILS, ABSOLUTE 0.2; HEMATOCRIT 37.6 % (35.0-50.0); HEMOGLOBIN 12.1 g/dL (12.0-18.0); LYMPHOCYTES 20.5 % (24-44); LYMPHOCYTES, ABSOLUTE 1.6; MCH 23.2 (27-36); MCHC 32.2 g/dl (30-36); MCV 72.2 fl (81-99); MONOCYTES 7.3 % (0-12); MONOCYTES, ABSOLUTE 0.6; NEUTROPHILS 67.9 % (39-80); NEUTROPHILS, ABSOLUTE 5.4; PLATELET COUNT 249 K/uL (140-440); RBC 5.21 M/ul (4.3-5.7); RDW 17.9 (10.5-15.0)
[2024-06-15 10:03] LABS: INR 1.08 (0.80-1.30); PROTIME 13.9 Sec (11.2-14.2)
[2024-06-15 10:05] LABS: ALBUMIN 3.1 g/dL (3.4-5.0); ALBUMIN/GLOBULIN RATIO 0.84 (1.1-2.4); ANION GAP 10.9 (7-21); BILIRUBIN, TOTAL 0.5 ng/dL (0.2-1.0); BUN/CREATININE RATIO 21.5 (6.0-28.6); CALCIUM 8.9 mg/dL (8.5-10.1); CREATININE, SERUM 0.93 mg/dL (0.55-1.02); POTASSIUM 3.9 mmol/L (3.5-5.1); PROTEIN, TOTAL 6.8 g/dL (6.4-8.2)
[2024-06-15] MEDS ORDERED: propofoL 200 MG/20 ML VIAL ONE (10:49)
[2024-06-15] MEDS ORDERED: LIDOCAINE HCL 2% 5 ML SDV ONE (10:50)
[2024-06-15] MEDS ORDERED: SEVOFLURANE 250 ML BTL INH ONE (11:01)
[2024-06-15] MEDS ORDERED: ondansetron HCL 4 MG/2 ML VIAL ONE (11:05)
--- NOTE | 2024-06-15 11:27 | NUR ---
06/15/24 Tab7 Jolie Urias 1118-PATIENT ARRIVED TO PACU ON RA AWAKE DENIES PAIN OR NAUSEA. HOB ELEVATED SITTING SEMI FOWLERS. COTTON BALL TO LEFT EAR INTACT NO DRAINAGE. SR. IVF INFUSING. 1125-PATIENT AWAKE DENIES PAIN OR NAUSEA. RA 97% RR EVEN. GIVEN SMALL SIPS OF WATER. RA 97% RR EVEN. IVF INFUSING.
[2024-06-15] MEDS ORDERED: CIPROFLOXACIN 0.3% 5 ML HOME.PACK OTIC ONE (11:30)
[2024-06-15 11:49] VITALS: BP 159/74
--- NOTE | 2024-06-15 11:50 | NUR ---
PT ARRIVES TO DS UNIT FROM PACU VIA STRETCHER. PT REPORTS NO PAIN. NO SIGNS OF DRAINAGE FROM LFT EAR, COTTON BALL IN PLACE. PT IS A&O AND ASKING APPROPRIATE QUESTIONS AT THIS TIME. REPORT RECEIVED FROM STEPH MATHEW, FAMILY AT BEDSIDE. PT ON RA W/O2 >90%, RESPIRATIONS EVEN AND UNLABORED, NO SIGNS OF DISTRESS. CALL LIGHT WITHIN REACH. COFFEE AND SNACKS PROVIDED, PT TOLERATING W/OUT DIFFICULTY SWALLOWING.
--- NOTE | 2024-06-15 12:35 | NUR ---
IN PT ROOM FOR VS AND ASSESSMENT. PT REPORTS NO CHANGES FROM PREVIOUS ASSESSMENT. COTTON BALL REMAINS INTACT, PT REMAINS PAIN FREE. PT GETTING DRESSED AT THIS TIME W/ASSISTANCE FROM SON & HIS . CALL LIGHT WITHIN REACH.
[2024-06-15 12:36] VITALS: BP 167/71
--- NOTE | 2024-06-15 12:50 | NUR ---
THIS RN IN ROOM FOR DC EDUCATION. PER GEMMA ORTIZ, PT CAN RESTART COUMADIN AT ANY TIME, PT FAMILY STATE VERBAL UNDERSTANDING. PT OFF OF UNIT VIA WC TO PASSENGER SIDE OF SON'S VEHICLE. PT REPORTS NO FURTHER QUESTIONS OR NEEDS AT THIS TIME. ALL BELONGINGS IN PT POSSESSION INCLUDING EAR DROP PRESCRIPTION.
--- NOTE | 2024-06-15 13:59 | OR ---
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 PROCEDURES: 1. Exam of the left ear under anesthesia. 2. Removal of foreign material. 3. Aural polyp excision. ANESTHESIA: General, LMA, SHAREPOINT ADMINISTRATOR, Bruno. PREOPERATIVE HISTORY: Ms. Rosa is an 79-year-old lady with material in the left ear canal. This is foreign material, unknown etiology. She has had this examined in the office, unable to completely removed this and she is taken to the operating for the above-mentioned procedures. OPERATIVE PROCEDURE AND FINDINGS: After informed consent, the patient was taken to the operating room, placed in the supine position where general LMA anesthesia was induced. The patient and procedure were verified. Left ear was examined with an operating microscope. There was some hard material down near the eardrum. In the medial ear canal, multiple pieces of appear to be possibly extravasated bone. Some mild amount of granulation tissue. One large aural polyp attached to the anterior ear canal near the eardrum, all this was cleaned out. The eardrum appeared to be intact. After removal of all material, minimal bleeding, stopped afterwards. The polyp was sent to pathology separately. The hard bony type material also sent separately to pathology. Ofloxacin drops were applied to the ear canal, cotton ball the meatus. The patient tolerated the procedure well, was awakened, extubated, transported to recovery room in good condition. No complications. BLOOD LOSS: Minimal. Electronically Signed By: GABO MENENDEZ MD 06/15/24 1359 PATIENT NAME: DEB ORSA OPERATIVE REPORT DATE OF : 41 REPORT #: [id number] PHYSICIAN: GABO MENENDEZ MD PCP: MATT CURRY DO REPORT IS CONFIDENTIAL AND NOT TO BE RELEASED WITHOUT AUTHORIZATION [address] [address] Signed SPECIMEN: To pathology. DRAINS: No drains. Gabo Menendez MD GC/BEVERLYL /[id number] Copies: ~ Electronically Signed By: GABO MENENDEZ MD 06/15/24 1359 PATIENT NAME: DEB ROSA OPERATIVE REPORT DATE OF : 41 REPORT #: [id number] PHYSICIAN: GABO MENENDEZ MD PCP: MATT CURRY DO REPORT IS CONFIDENTIAL AND NOT TO BE RELEASED WITHOUT AUTHORIZATION
--- NOTE | 2024-06-21 14:25 | PATH ---
[facility] [address] [place], [place] [address] Signed SPECIMEN(S): A LEFT EAR CANAL POLYP SPECIMEN(S): B LEFT EAR CANAL MATERIAL SPECIMEN SOURCE: A. LEFT EAR CANAL POLYP B. LEFT EAR CANAL MATERIAL CLINICAL HISTORY: Left ear foreign material, left ear cleaning FINAL PATHOLOGIC DIAGNOSIS: A. 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 B. Left ear canal material: - Fragments of keratin debris and bland bone fragments. - See comment. COMMENT: The histogic features are bland, however, the significance of these findings should be interpreted in the context of clinical and imaging findings. JVR:cml MICROSCOPIC EXAMINATION: Histologic sections of all submitted blocks are examined by light microscopy. These findings, together with the gross examination, support the pathologic diagnosis. GROSS DESCRIPTION: A. The specimen, labeled and designated "[place], left ear canal polyp," is received in formalin and consists of one red-olea soft tissue fragment, 0.3 cm. Entirely submitted in (A1). B. The specimen, labeled and designated "[place]ore, left ear canal material," is received in formalin and consists of multiple fragments of yellow-olea hardened/calcified material (1.5 x 0.6 x 0.3 cm in aggregate). The specimen is submitted entirely in cassette (B1) following decalcification in decal stat. VB (under the direct supervision of a pathologist) The Gross Description was prepared using a voice recognition system. The report was reviewed for accuracy; however, sound-alike word errors, addition and/or deletions may occur. If there is any question about this report, please contact Client Services. PATIENT NAME: DEB RAINEY PATHOLOGY DATE OF : 41 REPORT #: [id number] PHYSICIAN: KEENAN HAYNES PCP: MATT CURRY DO REPORT IS CONFIDENTIAL AND NOT TO BE RELEASED WITHOUT AUTHORIZATION [facility] [address] [facility] [place] [place] [address] Signed PERFORMING LABORATORY: Technical component was performed by [facility], [address] [place] [address] (CLIA# [id number]). Professional interpretation was performed by [facility] - [facility], [address] [place] [phone] (CLIA#: [id number]). Diagnostician: Navin Moyer MD Pathologist Electronically Signed 06/21/2024 Copies: ~ PATIENT NAME: DEB RAINEY PATHOLOGY DATE OF : 41 REPORT #: [id number] PHYSICIAN: KEENAN HAYNES PCP: MATT CURRY DO REPORT IS CONFIDENTIAL AND NOT TO BE RELEASED WITHOUT AUTHORIZATION
== END 2024-06-15 12:50 | disposition home or self-care (01) ==
LOC: DS 09:00 → OPS 09:00 → DS 10:30 → OPS 12:50
PROVIDERS: Nurse Anesthetist, Certified Registered; ATTEND Otolaryngology
PROC: 09B1XZZ Excision of Left External Ear, External Approach (ICD-10-PCS; 2024-06-15)
PROC: 09C1XZZ Extirpation of Matter from Left External Ear, External Approach (ICD-10-PCS; principal; 2024-06-15 10:30)
DX: T16.2XXA Foreign body in left ear, initial encounter (principal); H74.42 Polyp of left middle ear; I10 Essential (primary) hypertension; E78.00 Pure hypercholesterolemia, unspecified; E11.9 Type 2 diabetes mellitus without complications; J45.909 Unspecified asthma, uncomplicated; I25.2 Old myocardial infarction; Z86.711 Personal history of pulmonary embolism; Z79.01 Long term (current) use of anticoagulants; Z79.84 Long term (current) use of oral hypoglycemic drugs; Z79.899 Other long term (current) drug therapy; Z90.710 Acquired absence of both cervix and uterus
CPT/HCPCS: 00124; 36415; 80053; 85025; 85610; 88305; 88311; J2003; J2405; J2704; J7121

== ENCOUNTER 2025-01-02 11:06 | Inpatient (IN) | payer MEDICARE ==
[~2025-01-02] VITALS: Ht 160 cm; Wt 52.9 kg
[~2025-01-02 11:06] MED LIST changes: -CIPROFLOXACIN 0.3% 5 ML HOME.PACK ONE; +CRESTOR40 MG PO; +EYLEA2 MG/0.01 IO; -IBLOOD GLUCOSE TEST STRIP 1 EA TEST VI PRN; -LACTATED RINGER'S 1,000 ML IV SCH; -LIDOCAINE HCL 1% 5 ML SDV INJ ONE; +ROCKLATAN 0.022.5 ML OU
[2025-01-02 11:30] LABS: BASOPHILS 1.0 % (0.1-1.2); EOSINOPHILS 4.5 % (0.7-5.8); LYMPHOCYTES 22.2 % (19.3-51.7); MCH 21.5 PG (25.6-32.2); MCHC 29.5 g/dL (32.2-35.5); MCV 73.0 fL (79.4-94.8); MONOCYTES 7.6 % (4.7-12.5); NEUTROPHILS 64.6 % (34.0-71.1); RBC 4.78 M/uL (3.93-5.22)
[2025-01-02] MEDS ORDERED: ALBUTEROL/IPRATROPIUM 3 ML NEB INH PRN (11:30)
[2025-01-02 11:52] LABS: ALT (SGPT) 16.0 U/L (14-59); AST (SGOT) 14.0 U/L (15-37); GLOMERULAR FILTRATION RATE,EST 73.0 mL/min (>60); PROTEIN, TOTAL 6.9 g/dL (6.4-8.2); UREA NITROGEN 20.0 mg/dL (7-18)
[2025-01-02] MEDS ORDERED: ALBUTEROL SULFATE 0.5% 2.5 MG/0.5 ML VIAL INH ONE (12:00)
[2025-01-02] MEDS ORDERED: ELIQUIS2.5 MG PO (12:40)
[2025-01-02] MEDS ORDERED: AZITHROMYCIN 500 MG in DEXTROSE 5% 250 ML IV ONE (13:30)
[2025-01-02] MEDS ORDERED: FUROSEMIDE 40 MG/4 ML VIAL IV ONE (13:30)
[2025-01-02 14:23] LABS: CORONAVIRUS COVID-19 AG NEGATIVE (NEGATIVE)
[2025-01-02] MEDS ORDERED: BUSPIRONE HCL5 MG PO (14:41)
[2025-01-02] MEDS ORDERED: CITALOPRAM HBR20 MG PO (14:42)
[2025-01-02] MEDS ORDERED: ACETAMINOPHEN 325 MG TAB PO PRN (15:15)
[2025-01-02] MEDS ORDERED: ALBUTEROL SULFATE 0.083% 3 ML VIAL INH PRN (16:15)
[2025-01-02 16:36] VITALS: BP 150/64
[2025-01-02] MEDS ORDERED: DEXTROSE 50% 50 ML SYR IV PRN ×2 (17:15)
[2025-01-02] MEDS ORDERED: GLUCAGON,HUMAN RECOMBINANT 1 MG/ML VIAL SUB-Q PRN (17:15)
[2025-01-02] MEDS ORDERED: IBLOOD GLUCOSE TEST STRIP 1 EA TEST XX PRN (17:15)
[2025-01-02] MEDS ORDERED: DEXTROSE 5% 1,000 ML IV PRN (17:15)
--- NOTE | 2025-01-02 18:00 | NUR ---
In with pt in response to call light, pt has to use the toilet. 1PA FWW, tube mgmnt (pt was on room air, sats at 93%, but the minute she started moving in bed to get up, she began to have increased SOB, o2 increased to 2Lpm for activity to bathroom and back). Pt voided a large quantity unmeasured yellow clear urine in the toilet, wiped, and ambulated with FWW and 1PA back to bathroom. Clean gown provided for pt as there was gel on the old one from her ECHO. Pt at 96% on 2lpm when she got back to bed. Decreased o2 to 1lpm and will reassess. Hot pack provided for warmth. Pt family in room. 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
[2025-01-02 18:17] VITALS: BP 159/61
--- NOTE | 2025-01-02 18:21 | NUR ---
PT RESTING IN BED WITH HEAD UP ABOUT 20%. TWO VISITORS IN ROOM. PT HAS FRESH ICE WATER AND CALL LIGHT WITHIN REACH AND NEW EDUCATION ABOUT NURSE BUTTON.
[2025-01-02 18:30] VITALS: BP 159/61
[2025-01-02] MEDS ORDERED: BUDESONIDE 0.5 MG/2 ML VIAL INH SCH (20:00)
[2025-01-02] MEDS ORDERED: ALBUTEROL/IPRATROPIUM 3 ML NEB INH SCH (20:00)
[2025-01-02] MEDS ORDERED: ARFORMOTEROL TARTRATE 15 MCG/2 ML VIAL INH SCH (20:00)
[2025-01-02 20:46] VITALS: BP 162/90
[2025-01-02] MEDS ORDERED: APIXABAN 2.5 MG TAB PO SCH (21:00)
[2025-01-02] MEDS ORDERED: IBLOOD GLUCOSE TEST STRIP 1 EA TEST VI SCH (21:00)
[2025-01-02] MEDS ORDERED: INSULIN LISPRO 100 UNIT/ML ML SUB-Q SCH (21:00)
[2025-01-02 21:01] VITALS: BP 162/90
--- NOTE | 2025-01-02 21:12 | NUR ---
Awake, flat affect, cooperative, all cares explained prior to. cooperative with assessments and vitals. On 1LNC, lungs dim at bases, pt using coronet at this time. . abd soft. JENNIFER, CPOX on at bedside, up to BRP very weak legs and wobbly knees, 1PA/FWW. voided small amount of urine, sob noted on returns, O2 was increased to 2L when walking to BRP. Back to bed 1LNC in place. O2 not chronic Attends in place, pure wick in place at this time. CBG 244 received 1 unit SSI. Tylenol 650mg po given per back pain. alert and oriented to all
--- NOTE | 2025-01-02 22:48 | NUR ---
resting, eyes closed, O2 1LNC, CPOX on at bedside, no s/sx distres, pure wick in place.
[2025-01-03 02:22] VITALS: BP 168/70
[2025-01-03 02:37] VITALS: BP 168/70
--- NOTE | 2025-01-03 02:39 | NUR ---
PT WAS INCONTINENT OF URINE. SKIN CARE, ATTENDS IN PLACE, NEW PUREWICK IN [facility]. COOPERATIVE WITH ASSESSMENT, NO C/O PAIN
[2025-01-03 05:13] VITALS: BP 155/68
[2025-01-03 05:23] LABS: BASOPHILS 0 % (0.1-1.2); EOSINOPHILS 0 % (0.7-5.8); LYMPHOCYTES 8.9 % (19.3-51.7); MCH 21.5 PG (25.6-32.2); MCHC 29.9 g/dL (32.2-35.5); MCV 71.9 fL (79.4-94.8); MONOCYTES 1.9 % (4.7-12.5); NEUTROPHILS 89.0 % (34.0-71.1); RBC 4.66 M/uL (3.93-5.22)
[2025-01-03 05:42] LABS: ALT (SGPT) 19.0 U/L (14-59); AST (SGOT) 14.0 U/L (15-37); GLOMERULAR FILTRATION RATE,EST 64.0 mL/min (>60); PHOSPHORUS, INORGANIC 3.9 mg/dL (2.5-4.9); PROTEIN, TOTAL 7.1 g/dL (6.4-8.2); UREA NITROGEN 25.0 mg/dL (7-18)
--- NOTE | 2025-01-03 06:21 | NUR ---
AWAKE, TITRATED DOWN TO NO O2, ON ROOM AIR, C/O BACK PAIN, MEDICATED WITH TYLENOL, REPOSITIONED AND ATTENDS CHANGED, INCONTINENT OF URINE, SKINC ARE DONE, COOPERATIVE, DENIES CP OR SOB
[2025-01-03 06:23] VITALS: BP 155/68
--- NOTE | 2025-01-03 06:32 | NUR ---
AWAKE, C/O BACK PAIN, MEDICATED WITH TYLENOL 650MG PO. TURNED AND REPOSITIONED. PURE WINITIN INPLACE
--- NOTE | 2025-01-03 07:07 | NUR ---
Pt on room air at this time. cpox at bedside with sats 94%. no s/sx distress noted. Purewick in place, patent. legs elevated to comofrt, no further c/o pain, meds effective
[2025-01-03] MEDS ORDERED: POTASSIUM CHLORIDE 10 MEQ TABCR PO ONE (07:15)
--- NOTE | 2025-01-03 07:34 | NUR ---
PT RESTING EYES CLOSED AT TIME OF SHIFT REPORT, LEFT UNDISTURBED. FRESH H20 AND CALL LIGHT AT BEDSIDE. SATS 89% ON RA.
[2025-01-03] MEDS ORDERED: ENOXAPARIN SODIUM 40 MG/0.4 ML SYR SUB-Q SCH (09:00)
[2025-01-03] MEDS ORDERED: AZITHROMYCIN 500 MG in DEXTROSE 5% 250 ML IV SCH (09:00)
[2025-01-03] MEDS ORDERED: CITALOPRAM HYDROBROMIDE 20 MG TAB PO SCH (09:00)
[2025-01-03] MEDS ORDERED: predniSONE 20 MG TAB PO SCH (09:00)
[2025-01-03] MEDS ORDERED: TYLENOL EXTRA500 MG PO (09:03)
[2025-01-03] MEDS ORDERED: VITAMIN D325 MC4 PO (09:05)
[2025-01-03] MEDS ORDERED: REFRESH TEARS15 ML OU (09:07)
--- NOTE | 2025-01-03 09:10 | NUR ---
MED REC COMPLETE
--- NOTE | 2025-01-03 09:24 | NUR ---
PT EATS A GOOD BREAKFAST REPOSITIONED IN BED SHE DECLINES TO GET TO CHAIR AT THIS TIME. JUST FINISHED R/T TREATMENTS EDUCATION PROVIDED. PT FAMILY IN TO SEE HER UPDATE PROVIDED
[2025-01-03 09:47] VITALS: BP 143/71
--- NOTE | 2025-01-03 10:25 | NUR ---
P/T WELL TOLERATED PT FAMILY CONTINUE TO BE PRESENT. PT SOB BUT SATS REMAIN MID 90'S. DR MORALES IN TO SPEAK WITH PT AND FAMILY R/T DC TODAY. ALL QUESTIONS ANSWERED AND CONCERNS ADDRESSED. PT IS UP IN THE CHAIR AT THIS TIME
[2025-01-03 10:26] VITALS: BP 143/71
--- NOTE | 2025-01-03 10:48 | NUR ---
UR CLINICAL REVIEW: 2 [place] FOR [facility]ERSAL[facility]-PER INSPECTOR WELDED PARTS MEETS INPT FOR AHRF/CHF WITH NEED FOR RT, SERIAL LABS AND DIURESIS. MEDICARE INPT 01/02/25 @ 1508 ORDER MATCHES REG NO AUTH REQUIRED PER MEDICARE GUIDELINES DISCHARGE TO HOME IN 1-2 DAYS PER
--- NOTE | 2025-01-03 10:59 | NUR ---
INTO SEE PATIENT. PERSONAL HEALTH INFORMATION REVIEWED. PATIENT LIVES AT [facility]. PATIENT USES A WALKER. NO OXYGEN OR CPAP. DOES NOT DRIVE. DENIES DIFFCULTY PAYING UTLITIES OR OBTAINING FOOD. FAMILY AT BEDSIDE. MD IN ROOM. PLANS TO DISCHARGE PATIENT TODAY. REBECCA AT [facility] ACCEPTING PATIENT BACK.
[2025-01-03] MEDS ORDERED: AZITHROMYCIN250 MG PO (11:27)
[2025-01-03] MEDS ORDERED: CEFDINIR300 MG PO (11:27)
[2025-01-03] MEDS ORDERED: PREDNISONE20 MG PO (11:28)
[2025-01-03] MEDS ORDERED: ADVAIR 100-501 EACH INH (11:32)
[2025-01-03] MEDS ORDERED: PHARMACY RENAL DOSE ADJUSTMENT 1 DOSE MISC PO SCH (12:00)
--- NOTE | 2025-01-03 12:54 | NUR ---
CHART FAXED TO [facility]
--- NOTE | 2025-01-03 14:01 | EKG ---
[facility] [address] [facility] [place], [place] [address] Signed Sinus rhythm with 1st degree AV block Cannot rule out Inferior infarct (cited on or before 10-APR-2024) Abnormal ECG When compared with ECG of 10-APR-2024 19:28, IL interval has increased Confirmed by Faye Morales MD () on 01/03/2025 2:01:10 PM Electronically Signed By: FAYE MORALES MD 01/03/25 1401 PATIENT NAME: DEB RAINEY DIRK Electrocardiogram DATE OF : 41 PHYSICIAN: FAYE MORALES MD REPORT #: [id number] REPORT IS CONFIDENTIAL AND NOT TO BE RELEASED WITHOUT AUTHORIZATION
== END 2025-01-03 12:53 | disposition home or self-care (01) | DRG 193 ==
LOC: ED 11:06 → MS 15:21
PROVIDERS: Emergency Medicine; ADMIT Family Medicine; ATTEND Family Medicine
DX: J18.9 Pneumonia, unspecified organism (principal); I50.23 Acute on chronic systolic (congestive) heart failure; J96.01 Acute respiratory failure with hypoxia; J44.0 Chronic obstructive pulmonary disease with (acute) lower respiratory infection; J44.1 Chronic obstructive pulmonary disease with (acute) exacerbation; Z66 Do not resuscitate; E11.9 Type 2 diabetes mellitus without complications; D50.9 Iron deficiency anemia, unspecified; I11.0 Hypertensive heart disease with heart failure; I25.10 Atherosclerotic heart disease of native coronary artery without angina pectoris; Z86.711 Personal history of pulmonary embolism; I25.2 Old myocardial infarction; Z95.1 Presence of aortocoronary bypass graft; Z87.891 Personal history of nicotine dependence; Z79.84 Long term (current) use of oral hypoglycemic drugs; Z79.01 Long term (current) use of anticoagulants; Z88.5 Allergy status to narcotic agent; Z88.8 Allergy status to other drugs, medicaments and biological substances
CPT/HCPCS: 36415; 71045; 80053; 83735; 83880; 84100; 84484; 85025; 93005; 93010; 93306; 94640; 94667; 94668; 94760; 94762; 94799; 96365; 96367; 96375; 97161; 97530; 99285-25; A9270; J0456; J0696; J1815; J1938; J2919; J7060; J7512; J7605